=== PATIENT | male | born 1995 ===

== ENCOUNTER 2020-11-02 16:26 | Inpatient (IN) | payer MEDICAID ==
[~2020-11-02] VITALS: Ht 175.3 cm; Wt 70.6 kg
[2020-11-02] MEDS ORDERED: BUSP10TA PO (17:28)
[2020-11-02] MEDS ORDERED: RISP2TAB35 PO (17:28)
[2020-11-02] MEDS ORDERED: FLUO40CA9 PO (17:28)
[2020-11-02] MEDS ORDERED: HYDR25CA PO (17:28)
[2020-11-02] MEDS ORDERED: POLYETHYLENE GLYCOL 17 GM PACKET PO PRN (20:00)
[2020-11-02] MEDS ORDERED: DOCUSATE 100 MG CAPSULE PO PRN (20:00)
[2020-11-02] MEDS ORDERED: ONDANSETRON ODT 4 MG PO PRN (20:00)
[2020-11-02] MEDS ORDERED: BISACODYL 10 MG SUPP PR PRN (20:00)
[2020-11-02] MEDS ORDERED: ACETAMINOPHEN 325 MG TABLET PO PRN (20:00)
[2020-11-02 20:28] VITALS: BP 112/74
[2020-11-02] MEDS ORDERED: PLEASE ENTER ALLERGIES MC SCH (20:30)
[2020-11-02] MEDS ORDERED: PLEASE ENTER HEIGHT AND WEIGHT MC SCH (20:30)
[2020-11-02] MEDS ORDERED: HYDROXYZINE PAMOATE 50MG CAP ONE (21:39)
[2020-11-02] MEDS ORDERED: HYDROXYZINE PAMOATE 25MG CAP ONE (21:41)
[2020-11-02] MEDS: HYDROXYZINE PAMOATE 25MG CAP PO PRN (21:57)
[2020-11-03] MEDS: HYDROXYZINE PAMOATE 25MG CAP PO PRN ×2 (05:42→17:06)
[2020-11-03 06:56] LABS: CHOL/HDL RATIO 4.9; FREE T4 (FREE THYROXINE) 0.85 ng/dL (0.76-1.46); LDL/HDL RATIO 2.9 (0.5-3.0)
[2020-11-03 07:21] VITALS: BP 97/63
[2020-11-03] MEDS: RISPERIDONE 2 MG TABLET PO SCH ×2 (08:13→20:03)
[2020-11-03] MEDS: FLUOXETINE HCL 20 MG CAPSULE PO SCH (08:13)
[2020-11-03] MEDS ORDERED: BUSPIRONE 10 MG TABLET PO SCH (09:00)
[2020-11-03 09:14] LABS: MICROSCOPIC NOT IND
[2020-11-03] MEDS: BUSPIRONE 10 MG TABLET PO SCH ×2 (14:38→20:03)
[2020-11-03] MEDS: NICOTINE 21 MG/24 HR PATCH.TD24 TD SCH (16:31)
[2020-11-03 19:40] VITALS: BP 107/74
[2020-11-04 07:43] VITALS: BP 138/73
[2020-11-04] MEDS: BUSPIRONE 10 MG TABLET PO SCH ×3 (07:43→20:03)
[2020-11-04] MEDS: FLUOXETINE HCL 20 MG CAPSULE PO SCH (07:43)
[2020-11-04] MEDS: NICOTINE 21 MG/24 HR PATCH.TD24 TD SCH (07:43)
[2020-11-04] MEDS: RISPERIDONE 2 MG TABLET PO SCH ×2 (07:43→20:03)
[2020-11-04] MEDS: HYDROXYZINE PAMOATE 25MG CAP PO PRN ×2 (08:30→16:59)
[2020-11-04] MEDS ORDERED: LORazepam 1MG TABLET ONE (10:26)
[2020-11-04] MEDS: LORazepam 1MG TABLET PO PRN (10:27)
[2020-11-04 19:39] VITALS: BP 110/70
[2020-11-04] MEDS: TRAZODONE 50MG TABLET PO SCH (20:47)
[2020-11-05 07:30] VITALS: BP 102/65
[2020-11-05] MEDS: FLUOXETINE HCL 20 MG CAPSULE PO SCH (08:06)
[2020-11-05] MEDS: BUSPIRONE 10 MG TABLET PO SCH ×3 (08:06→20:30)
[2020-11-05] MEDS: NICOTINE 21 MG/24 HR PATCH.TD24 TD SCH (08:06)
[2020-11-05] MEDS: HYDROXYZINE PAMOATE 25MG CAP PO PRN ×2 (08:06→14:25)
[2020-11-05] MEDS: RISPERIDONE 2 MG TABLET PO SCH ×2 (08:07→20:30)
[2020-11-05] MEDS: LORazepam 1MG TABLET PO PRN ×2 (09:40→15:38)
[2020-11-05 19:22] VITALS: BP 97/63
[2020-11-05 20:25] VITALS: BP 101/65
[2020-11-05] MEDS: TRAZODONE 50MG TABLET PO SCH (20:38)
[2020-11-06 06:43] VITALS: BP 106/69
[2020-11-06] MEDS: HYDROXYZINE PAMOATE 25MG CAP PO PRN ×2 (07:28→20:12)
[2020-11-06] MEDS: LORazepam 1MG TABLET PO PRN ×3 (08:27→18:57)
[2020-11-06] MEDS: FLUOXETINE HCL 20 MG CAPSULE PO SCH (09:53)
[2020-11-06] MEDS: BUSPIRONE 10 MG TABLET PO SCH ×3 (09:53→20:13)
[2020-11-06] MEDS: NICOTINE 21 MG/24 HR PATCH.TD24 TD SCH (09:54)
[2020-11-06] MEDS: RISPERIDONE 2 MG TABLET PO SCH ×2 (09:54→20:13)
[2020-11-06] MEDS ORDERED: LORazepam 1MG TABLET ONE (14:02)
[2020-11-06] MEDS ORDERED: LORazepam 1MG TABLET PO PRN (14:30)
[2020-11-06 19:43] VITALS: BP 110/75
[2020-11-06] MEDS: TRAZODONE 50MG TABLET PO SCH (20:12)
[2020-11-07] MEDS: LORazepam 1MG TABLET PO PRN ×2 (07:24→16:01)
[2020-11-07 07:40] VITALS: BP 108/75
[2020-11-07] MEDS: RISPERIDONE 2 MG TABLET PO SCH ×2 (09:19→20:37)
[2020-11-07] MEDS: BUSPIRONE 10 MG TABLET PO SCH ×3 (09:19→20:37)
[2020-11-07] MEDS: FLUOXETINE HCL 20 MG CAPSULE PO SCH (09:19)
[2020-11-07] MEDS: NICOTINE 21 MG/24 HR PATCH.TD24 TD SCH (09:20)
[2020-11-07] MEDS: HYDROXYZINE PAMOATE 25MG CAP PO PRN ×2 (11:45→20:37)
[2020-11-07 19:32] VITALS: BP 104/69
[2020-11-07] MEDS: TRAZODONE 50MG TABLET PO SCH (20:37)
[2020-11-08] MEDS: LORazepam 1MG TABLET PO PRN ×2 (04:05→12:25)
[2020-11-08] MEDS: HYDROXYZINE PAMOATE 25MG CAP PO PRN (07:41)
[2020-11-08 07:47] VITALS: BP 93/67
[2020-11-08] MEDS: BUSPIRONE 10 MG TABLET PO SCH ×3 (08:17→21:27)
[2020-11-08] MEDS: RISPERIDONE 2 MG TABLET PO SCH ×2 (08:17→21:27)
[2020-11-08] MEDS: NICOTINE 21 MG/24 HR PATCH.TD24 TD SCH (08:17)
[2020-11-08] MEDS: FLUOXETINE HCL 20 MG CAPSULE PO SCH (08:18)
[2020-11-08] MEDS ORDERED: BUSP10TA PO (15:46)
[2020-11-08] MEDS ORDERED: HYDR25CA94 PO (15:46)
[2020-11-08] MEDS ORDERED: FLUO20CA23 PO (15:46)
[2020-11-08] MEDS ORDERED: NICO-587 TD (15:46)
[2020-11-08] MEDS ORDERED: RISP2TAB80 PO (15:46)
[2020-11-08 21:25] VITALS: BP 97/62
[2020-11-08] MEDS: TRAZODONE 50MG TABLET PO SCH (21:27)
[2020-11-09] MEDS: HYDROXYZINE PAMOATE 25MG CAP PO PRN (04:17)
== END 2020-11-09 05:40 | disposition home or self-care (01) | DRG 885 ==
LOC: 3E 20:28
PROVIDERS: ADMIT Psychiatry & Neurology Psychosomatic Medicine; ATTEND Psychiatry & Neurology Psychosomatic Medicine
DX: F31.5 Bipolar disorder, current episode depressed, severe, with psychotic features (principal); Z99.2 Dependence on renal dialysis; F41.1 Generalized anxiety disorder; Z79.899 Other long term (current) drug therapy; Z91.5 Personal history of self-harm
CPT/HCPCS: 36415; 71045; 80061; 81003; 82607; 84439; 84443; 93005